=== PATIENT | male | born 1965 | race Caucasian/White ===

== ENCOUNTER 2020-12-14 18:32 | Emergency (ER) | payer OTHER ==
[2020-12-14 18:56] VITALS: BP 219/120; PULSE 94; RESP 18; TEMP 98.3
--- NOTE | 2020-12-14 19:47 | XR ---
EXAMINATION TYPE: XR ankle complete LT DATE OF EXAM: 12/14/2020 CLINICAL HISTORY: Pain/abscess. TECHNIQUE: Frontal, lateral and oblique images of the left ankle are obtained. COMPARISON: None. FINDINGS: There is plate and screw fixation of the distal fibula without evidence of periprosthetic fracture or loosening. Soft tissue prominence superficial to the fixation plate. A chronic-appearing ossific density at the inferior aspect of the medial malleolus. There is no acute fracture/dislocation evident in the left ankle. The ankle mortise appears within normal limits. A tiny well-corticated ossific density is seen anterior mid/distal tibial soft tissues. IMPRESSION: Plate and screw fixation of the distal fibula without evidence of periprosthetic fracture or loosening. Soft tissue prominence superficial to the fixation plate without evidence of subcutane ous gas or radiopaque foreign body. If there is concern for an abscess, ultrasound may be considered .
--- NOTE | 2020-12-14 20:44 | ED ---
Lower Extremity Injury HPI - General Chief Complaint: Extremity Injury, Lower Stated Complaint: Sore on foot Time Seen by Provider: 12/14/20 19:55 Source: patient Limitations: no limitations - History of Present Illness Initial Comments: 55-year-old male presents to emergency Department with a chief complaint of sore on the foot. Patient reports he had surgery on his left ankle and had previously developed an abscess there. States about 10 days ago he stopped taking oral antibiotics for the abscess in the region. States that now he's noticed another lesion is starting to appear. Does report some clear discharge but denies any significant erythema or warmth to the touch. Denies any fevers or chills. Denies any pustular discharge from region. Denies any new injuries there. - Related Data Previous Rx's Medication Instructions Recorded Sulfamethox-Tmp 800-160Mg [Bactrim 1 each PO Q12HR #20 tab 12/14/20 Ds] Allergies Allergy/AdvReac Type Severity Reaction Status Date / Time No Known Allergies Allergy Verified 12/14/20 18:51 Review of Systems ROS Statement: Those systems with pertinent positive or pertinent negative responses have been documented in the HPI. ROS Other: All systems not noted in ROS Statement are negative. Past Medical History Past Medical History: No Reported History History of Any Multi-Drug Resistant Organisms: None Reported Past Surgical History: Orthopedic Surgery Additional Past Surgical History / Comment(s): B ankle Past Psychological History: No Psychological Hx Reported Smoking Status: Current every day smoker Past Alcohol Use History: Occasional Past Drug Use History: None Reported General Exam Limitations: no limitations General appearance: alert, in no apparent distress Head exam: Present: atraumatic, normocephalic, normal inspection Eye exam: Present: normal appearance, PERRL, EOMI Pupils: Present: normal accommodation ENT exam: Present: normal exam, normal oropharynx, mucous membranes moist Neck exam: Present: normal inspection, full ROM. Absent: tenderness Respiratory exam: Present: normal lung sounds bilaterally. Absent: respiratory distress, wheezes, rales, rhonchi, stridor Cardiovascular Exam: Present: regular rate, normal rhythm, normal heart sounds. Absent: systolic murmur Extremities exam: Present: full ROM, normal capillary refill, other. Absent: normal inspection (Scarring noted on the left ankle. Small mount of clear discharge but no significant erythema. No purulent discharge.), tenderness, pedal edema, joint swelling, calf tenderness Back exam: Present: normal inspection, full ROM. Absent: tenderness, CVA tenderness (R), CVA tenderness (L), muscle spasm, paraspinal tenderness, vertebral tenderness Neurological exam: Present: alert, oriented X3 Psychiatric exam: Present: normal affect, normal mood Skin exam: Present: warm, dry, intact, normal color Course Vital Signs 12/14/20 18:52 Temperature 98.3 F Pulse Rate 94 Respiratory 18 Rate Blood Pressure 219/120 O2 Sat by Pulse 98 Oximetry Medical Decision Making - Medical Decision Making 55-year-old male presents emergency Department with a chief complaint of soreness foot. On physical examination, no signs of significant infection. X- ray shows hardware appears to be in place. Patient is afebrile and did not complain of any fevers at home. 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 States he is leaving tomorrow. We'll start the patient on Bactrim until he is able to follow-up with his rn orthopedic. No incision and drainage necessary at this time. Disposition Clinical Impression: Skin lesion Disposition: HOME SELF-CARE Condition: Stable Instructions (If sedation given, give patient instructions): Abscess (ED) Additional Instructions: Take prescribed medication as directed. Follow with the primary care physician. Return to emergency department if symptoms worsen. Prescriptions: Sulfamethox-Tmp 800-160Mg [Bactrim Ds] 1 each PO Q12HR #20 tab Is patient prescribed a controlled substance at d/c from ED?: No Referrals: None,Stated [Primary Care Provider] - 1-2 days Time of Disposition: 20:44
== END 2020-12-14 20:52 | disposition home or self-care (01) ==
LOC: EC 18:32
DX: L98.9 Disorder of the skin and subcutaneous tissue, unspecified (principal); F17.200 Nicotine dependence, unspecified, uncomplicated
CPT/HCPCS: 99283